=== PATIENT | male | born 1985 | race Caucasian/White ===

== ENCOUNTER 2022-06-02 14:51 | Emergency (ER) | payer SELFPAY ==
[~2022-06-02] VITALS: Ht 172.7 cm; Wt 77.1 kg
[2022-06-02 14:57] VITALS: BP 132/86
--- NOTE | 2022-06-02 15:06 | NUR ---
37 y/o male biba from [facility], [facility] reports pt was found in hotel room [facility], admits to drinking 1 bottle of vodka. per retail assistant manager, pt was supposed to check out and was refusing to leave, pd on scene. 0/10 pain. a&ox4, slurred speech. pmh: denies nka med: denies
--- NOTE | 2022-06-02 15:15 | NUR ---
PT NOT FOUND IN LOBBY
--- NOTE | 2022-06-02 15:15 | NUR ---
pt lwbs at this time
== END 2022-06-02 15:15 | disposition left against medical advice (07) ==
LOC: MED 14:51
DX: F10.129 Alcohol abuse with intoxication, unspecified (principal); Y90.9 Presence of alcohol in blood, level not specified; Z53.21 Procedure and treatment not carried out due to patient leaving prior to being seen by health care provider